=== PATIENT | female | born 1965 | race Caucasian/White ===

== ENCOUNTER → 2024-10-30 15:44 | Outpatient (REF) | payer OTHER, SELFPAY | LOC: HWWDC 15:44 | PROVIDERS: ATTENDING PHYSICIAN Obstetrics & Gynecology Gynecology; FAMILY PHYSICIAN Physician Assistant Medical | DX: Z12.31 Encounter for screening mammogram for malignant neoplasm of breast (principal) | CPT/HCPCS: 77063; 77067 ==

== ENCOUNTER → 2024-11-18 14:57 | Outpatient (REF) | payer OTHER, SELFPAY | LOC: HWRAD 14:57 | PROVIDERS: ATTENDING PHYSICIAN Obstetrics & Gynecology Gynecology; FAMILY PHYSICIAN Physician Assistant Medical | DX: Z78.0 Asymptomatic menopausal state (principal) | CPT/HCPCS: 77080 ==